=== PATIENT | male | born 1980 | race African-American/Black ===

== ENCOUNTER 2023-07-19 17:46 | Emergency (ER) | payer OTHER ==
[~2023-07-19] VITALS: Ht 175.3 cm; Wt 89.0 kg
[2023-07-19 18:40] LABS: Urine Bacteria None Seen /hpf (None Seen)
[2023-07-19 18:44] LABS: Urine Blood Negative /uL (Negative); Urine Clarity Clear (Clear); Urine Color Light-Yellow (Yellow); Urine Protein, UAD Negative (Negative); Urine Specific Gravity 1.011 (1.001-1.035); Urine Urobilinogen Normal (Negative); Urine WBC <1 /hpf (0 - 3)
[2023-07-19 19:39] LABS: Basophils # (auto) 0 10 ^3/uL (0-0.2); Basophils % (auto) 0.2 % (0.0-2.0); Eosinophils # (auto) 0.4 10 ^3/uL (0-0.8); Eosinophils % (auto) 4.1 % (0.0-7.0); Hematocrit 46.1 % (41.0-53.0); Hemoglobin 15.1 g/dL (13.5-17.5); Lymphocytes # (auto) 3.4 10 ^3/uL (0.4-5.4); Lymphocytes % (auto) 31.7 % (10.0-50.0); Mean Corpuscular Hemoglobin 29.1 pg (28.0-32.0); Mean Corpuscular Hgb Conc. 32.7 g/dL (32.0-36.0); Mean Corpuscular Volume 88.9 fL (80.0-100.0); Monocytes # (auto) 0.6 10 ^3/uL (0-1.3); Monocytes % (auto) 5.9 % (0.0-12.0); Neutrophils # (auto) 6.3 10 ^3/uL (1.6-8.6); Neutrophils % (auto) 58.1 % (37.0-80.0); Nucleated Red Blood Cells % 0.5 %; Red Blood Cells 5.18 10^6/uL (4.5-5.90); Red Cell Distribution Width 12.9 % (11.8-14.3); White Blood Cell 10.8 10^3/uL (4.4-10.8)
[2023-07-19 19:57] LABS: Alanine Aminotransferase 26 U/L (7-40); Albumin 4.6 g/dL (3.2-4.8); Alkaline Phosphatase 75 U/L (46-116); Anion Gap 5 (5-15); Aspartate Aminotransferase 18 U/L (13-40); BUN/Creatinine Ratio 6.5 (10.0-20.0); Bilirubin, Total 1.2 mg/dL (0.2-1.0); Blood Urea Nitrogen 8 mg/dL (9-23); Calcium 9.7 mg/dL (8.5-10.1); Carbon Dioxide 30 mmol/L (20-30); Chloride 104 mmol/L (98-107); Glucose 90 mg/dL (74-106); INR 1.07 (0.9-1.15); Partial Thromboplastin Time 25.5 SEC (24.5-34.5); Potassium 4.3 mmol/L (3.5-5.1); Prothrombin Time 11.3 sec (9.3-11.8); Sodium 139 mmol/L (136-145); Total Protein 7.5 g/dL (5.7-8.2)
[2023-07-19] MEDS: KETOROLAC TROMETH 60MG/2ML VIAL IM ONE (20:54)
[2023-07-19] MEDS ORDERED: METH-1181 PO (23:33)
[2023-07-19] MEDS ORDERED: ACET-1304 PO (23:33)
[2023-07-19] MEDS ORDERED: IBUP1TAB5 PO (23:33)
[2023-07-19] MEDS ORDERED: OMEP-434 PO (23:33)
[2023-07-20 00:21] VITALS: BP 130/87; PULSE 82; RESP 16; TEMP 97.6; O2SAT 97
== END 2023-07-20 00:21 | disposition home or self-care (01) ==
LOC: ER 17:46
DX: R10.9 Unspecified abdominal pain (principal); M62.838 Other muscle spasm
CPT/HCPCS: 36415; 74176; 80053; 81001; 85025; 85610; 85730; 96372; 99285; J1885